=== PATIENT | female | born 1995 | race Hispanic/Latino ===

== ENCOUNTER 2019-03-09 12:00 | Inpatient (IN) | payer MEDICAID, OTHER ==
[~2019-03-09] VITALS: Ht 154.9 cm; Wt 59.0 kg
[2019-03-09 12:27] LABS: APPEARANCE,URINE Cloudy (CLEAR); BILIRUBIN,URINE Negative (NEGATIVE); COLOR,URINE Yellow (YELLOW); GLUCOSE, URINE (UA) Negative (NEGATIVE); KETONES,URINE >=80 mg/dL (NEGATIVE); LEUKOCYTE ESTERASE ,URINE Small (NEGATIVE); NITRATE,URINE Negative (NEGATIVE); OCCULT BLOOD,URINE Moderate (NEGATIVE); PROTEIN,URINE POS 1+ mg/dL (NEGATIVE); UROBILINOGEN,URINE 0.2 mg/dL (0.2-1.0)
[2019-03-09 12:28] LABS: HCG,QUAL RESULT NEGATIVE (NEGATIVE)
[2019-03-09 12:35] LABS: BACTERIA,URINE Few /HPF (None Seen)
[2019-03-09 12:36] LABS: HYALINE CASTS, URINE 26-50 /LPF (0-1 /LPF); MUCUS,URINE Few LPF (None Seen)
[2019-03-09 13:03] LABS: BASOPHILS % (AUTO) 0.2 % (0.0-5.0); EOSINOPHILS % (AUTO) 3.2 % (0.0-8.0); HEMATOCRIT 37.8 % (36-48); MEAN CORPUSCULAR HEMOGLOBIN 31.1 pg (27.0-33.0); MEAN CORPUSCULAR HGB CONC 34.6 g/dL (32.0-36.0); MEAN CORPUSCULAR VOLUME 89.9 fL (79-99); MONOCYTES % (AUTO) 7.7 % (3.0-13.0); NEUTROPHILS % (AUTO) 71.9 % (40.0-77.0); PLATELET COUNT (AUTO) 323 K/uL (130-400); RED BLOOD CELL COUNT(AUTO) 4.21 MIL/uL (4.00-5.50); RED CELL DISTRIBUTION WIDTH 13.1 % (11.0-15.5); WHITE BLOOD COUNT (AUTO) 7.3 K/uL (4.8-10.8)
[2019-03-09] MEDS ORDERED: ONDANSETRON HCL 4 MG/2 ML VIAL ONE ×2 (13:05→19:16)
[2019-03-09] MEDS ORDERED: HYOSCYAMINE SULFATE 0.125 MG TAB.SUBL SL ONE (13:05)
[2019-03-09] MEDS ORDERED: SODIUM CHLORIDE 0.9% 1000ML 1,000 ML IV ONE ×2 (13:05→16:51)
[2019-03-09 13:10] LABS: CREATININE 0.7 mg/dL (0.5-1.5); POTASSIUM 3.6 mmol/L (3.5-5.1)
[2019-03-09 13:12] LABS: INR 1.03 (0.85-1.15); PARTIAL THROMBOPLASTIN TIME 27.3 SEC (26.3-35.5); PROTHROMBIN TIME 10.8 SEC (9.6-11.6)
[2019-03-09 13:15] LABS: ALBUMIN 3.7 g/dL (3.5-5.0); BILIRUBIN,DIRECT 0.1 mg/dL (0.0-0.3); BILIRUBIN,TOTAL 0.3 mg/dL (0.2-1.0); TOTAL PROTEIN, SERUM 7.7 g/dL (6.0-8.3)
[2019-03-09 13:27] LABS: OCCULT BLOOD STOOL SINGLE ONLY POSITIVE (NEGATIVE)
[2019-03-09] MEDS ORDERED: IOHEXOL-350 75 ML VIAL IV ONE (14:27)
[2019-03-09] MEDS: SODIUM CHLORIDE 0.9% 1000ML 1,000 ML IV SCH (15:25)
[2019-03-09] MEDS ORDERED: POTASSIUM CHLORIDE 10% ELIXIR 20 MEQ/15 ML UDCUP PO PRN (17:00)
[2019-03-09] MEDS ORDERED: POTASSIUM CHLORIDE 20MEQ/100ML 100 ML IV PRN ×2 (17:00)
[2019-03-09] MEDS: CEFTRIAXONE SODIUM 1 GM IVP SCH (17:15)
[2019-03-09] MEDS ORDERED: CEFTRIAXONE SODIUM 1 GM ONE (17:47)
[2019-03-09 19:00] VITALS: BP 103/69
[2019-03-09] MEDS: MORPHINE SULFATE 2 MG/ML 1ML SYG IV PRN (19:20)
--- NOTE | 2019-03-09 19:30 | NUR ---
DR MILLER HERE ON FLOOR. MADE AWARE OF CONSULT TO SEE PATIENT. LABS WERE REPORTED TO AND STATED " LABS LOOK FINE AND THERE IS NO NEED FOR ME TO SEE PATIENT". RECONSULT NEEDED. ON COMING NURSE INFORMED
[2019-03-09 20:00] VITALS: BP 115/68
[2019-03-09] MEDS ORDERED: PANTOPRAZOLE 40 MG/VIAL IVP SCH (21:00)
[2019-03-09] MEDS ORDERED: FAMOTIDINE/PF 20 MG/2 ML VIAL IV SCH (21:00)
[2019-03-09 21:35] LABS: MEAN CORPUSCULAR HEMOGLOBIN 31.2 pg (27.0-33.0); MEAN CORPUSCULAR HGB CONC 34.7 g/dL (32.0-36.0); MEAN CORPUSCULAR VOLUME 89.9 fL (79-99); PLATELET COUNT (AUTO) 281 K/uL (130-400); RED BLOOD CELL COUNT(AUTO) 3.56 MIL/uL (4.00-5.50); WHITE BLOOD COUNT (AUTO) 6.9 K/uL (4.8-10.8)
[2019-03-09 23:49] VITALS: BP 100/53
[2019-03-10] MEDS: ONDANSETRON HCL 4 MG/2 ML VIAL IVP PRN ×3 (01:56→17:10)
[2019-03-10] MEDS: MORPHINE SULFATE 2 MG/ML 1ML SYG IV PRN ×2 (02:07→18:32)
[2019-03-10] MEDS: SODIUM CHLORIDE 0.9% 1000ML 1,000 ML IV SCH ×4 (02:10→11:58)
[2019-03-10 03:42] VITALS: BP 110/60
[2019-03-10 06:47] LABS: BASOPHILS % (AUTO) 0.3 % (0.0-5.0); LYMPHOCYTES % (AUTO) 16.6 % (21.0-51.0); MEAN CORPUSCULAR HEMOGLOBIN 31.6 pg (27.0-33.0); MEAN CORPUSCULAR HGB CONC 34.5 g/dL (32.0-36.0); MEAN CORPUSCULAR VOLUME 91.4 fL (79-99); MONOCYTES % (AUTO) 7.3 % (3.0-13.0); NEUTROPHILS % (AUTO) 72.8 % (40.0-77.0); PLATELET COUNT (AUTO) 271 K/uL (130-400); RED CELL DISTRIBUTION WIDTH 13.3 % (11.0-15.5)
[2019-03-10 06:54] LABS: ALBUMIN 2.8 g/dL (3.5-5.0); BILIRUBIN,TOTAL 0.3 mg/dL (0.2-1.0); CREATININE 0.6 mg/dL (0.5-1.5); POTASSIUM 3.6 mmol/L (3.5-5.1); TOTAL PROTEIN, SERUM 6.1 g/dL (6.0-8.3)
[2019-03-10 07:52] LABS: AMYLASE 234 U/L (25-115)
[2019-03-10 08:00] VITALS: BP 116/53
[2019-03-10 08:03] LABS: APPEARANCE,URINE Clear (CLEAR); BILIRUBIN,URINE Negative (NEGATIVE); COLOR,URINE Yellow (YELLOW); GLUCOSE, URINE (UA) Negative (NEGATIVE); KETONES,URINE >=160 mg/dL (NEGATIVE); LEUKOCYTE ESTERASE ,URINE Trace (NEGATIVE); NITRATE,URINE Negative (NEGATIVE); OCCULT BLOOD,URINE Large (NEGATIVE); PROTEIN,URINE Trace mg/dL (NEGATIVE); UROBILINOGEN,URINE 0.2 mg/dL (0.2-1.0)
[2019-03-10 08:16] LABS: LIPASE 2668 U/L (114-286)
[2019-03-10 08:17] LABS: BACTERIA,URINE None Seen /HPF (None Seen); RBC,URINE 26-50 /HPF (0-1)
[2019-03-10] MEDS ORDERED: ENOXAPARIN SODIUM 30 MG/0.3 ML SQ SCH (09:00)
[2019-03-10 12:00] VITALS: BP 103/55
[2019-03-10] MEDS: DEXTROSE 5%-LACTATED RINGERS 1,000 ML IV SCH (15:33)
[2019-03-10 16:00] VITALS: BP 112/68
[2019-03-10] MEDS: CEFTRIAXONE SODIUM 1 GM IVP SCH (17:09)
[2019-03-10] MEDS: MAGNESIUM 2GM PREMIX 50ML 50 ML IV PRN (17:10)
--- NOTE | 2019-03-10 17:55 | NUR ---
INITIAL: Met with pt this afternoon to discuss dcp. Pt mentions that she lives w her dad and stepmom. Prior to admission she was independent w ambulation and ADLs. She does not own any DME or receive services. Pt mentions that she feels safe and comfortable to return home at ar. CM to continue to follow and wait for Md recommendations. Addendum: 03/10/19 at 1756 by JOANA VENTURA CM Amended: Links added. Addendum: 03/10/19 at 1757 by JOANA VENTURA low income packet provided to pt. discussed $4 discount prescription program avail @ [facility] or [facility].
--- NOTE | 2019-03-10 19:20 | NUR ---
SONO RECEIVED REPORT FROM AM SHIFT,SABAS MICHELLE. NURSE'S ROUND DONE. OCCUPATIONAL PHYSICIAN CALLED AND ASKED IF PT IS NPO. INFORMED THAT PT JUST PLACED NPO FROM NOW. TRAINING ASSISTANT WAS INFORMED THAT OCCUPATIONAL PHYSICIAN WILL NOT BE IN TILL THE AM. WILL PLACE PT NPO POST MN.
[2019-03-10 19:47] VITALS: BP 111/76
--- NOTE | 2019-03-10 20:15 | NUR ---
NPO PT INFORMED THAT THERE IS NO CONVEYOR WEIGHER OPERATOR UNTIL THE AM. INSTRUCTED NPO POST MN. LET TO HAVE CLEAR LIQUIDS AT THIS TIME.
[2019-03-10] MEDS: POTASSIUM CHLORIDE 20 MEQ ERTAB PO PRN ×2 (21:30→23:16)
--- NOTE | 2019-03-10 23:20 | NUR ---
KCL LAST DOSE OF KCL PO GIVEN, TOLERATED WELL. RE-ITERATED TO BE NPO POST MN FOR SONOGRAM IN AM. PT VERBALIZES UNDERSTANDING.
[2019-03-10 23:44] VITALS: BP 144/56
[2019-03-11] MEDS: DEXTROSE 5%-LACTATED RINGERS 1,000 ML IV SCH ×3 (00:03→16:32)
--- NOTE | 2019-03-11 02:00 | NUR ---
ROUNDS PT FAIRLY ASLEEP WITH RESPIRATIONS EVEN AND UNLABORED. KEPT UNDISTURBED FOR NOW. WILL MONITOR PT. KEPT NPO.
--- NOTE | 2019-03-11 03:30 | NUR ---
BM PT REPORTED 2 LOOSE STOOLS THIS AM. INSTRUCTED TO COLLECT AND LET STAFF KNOW WHEN SHE WILL HAVE ANOTHER BM. NUN'S CAP PROVIDED FOR COLLECTION.
[2019-03-11 04:00] VITALS: BP 107/71
--- NOTE | 2019-03-11 05:58 | NUR ---
ROUNDS PT RESTING WELL, NO DISTRESS NOTED. KEPT RESTED AND COMFORTABLE. KEPT NPO FOR SONOGRAM. FOR MORE CARE.
[2019-03-11 06:10] LABS: BASOPHILS % (AUTO) 0.4 % (0.0-5.0); EOSINOPHILS % (AUTO) 6.3 % (0.0-8.0); HEMATOCRIT 36.5 % (36-48); LYMPHOCYTES % (AUTO) 16.2 % (21.0-51.0); MEAN CORPUSCULAR HEMOGLOBIN 31.4 pg (27.0-33.0); MEAN CORPUSCULAR HGB CONC 35.1 g/dL (32.0-36.0); MEAN CORPUSCULAR VOLUME 89.5 fL (79-99); MONOCYTES % (AUTO) 10.6 % (3.0-13.0); NEUTROPHILS % (AUTO) 66.5 % (40.0-77.0); PLATELET COUNT (AUTO) 359 K/uL (130-400); RED BLOOD CELL COUNT(AUTO) 4.07 MIL/uL (4.00-5.50); RED CELL DISTRIBUTION WIDTH 13.3 % (11.0-15.5); WHITE BLOOD COUNT (AUTO) 7.4 K/uL (4.8-10.8)
[2019-03-11 06:38] LABS: ALBUMIN 3.1 g/dL (3.5-5.0); BILIRUBIN,TOTAL 0.2 mg/dL (0.2-1.0); CREATININE 0.6 mg/dL (0.5-1.5); MAGNESIUM 1.8 mg/dL (1.80-2.40); POTASSIUM 4.2 mmol/L (3.5-5.1)
[2019-03-11 08:00] VITALS: BP 120/73
--- NOTE | 2019-03-11 08:55 | NUR ---
STOOL SPECIMEN STOOL COLLECTED AND SENT FOR C. DIFF PANEL.
[2019-03-11] MEDS: ONDANSETRON HCL 4 MG/2 ML VIAL IVP PRN ×3 (08:56→20:11)
[2019-03-11] MEDS: MAGNESIUM 2GM PREMIX 50ML 50 ML IV PRN (09:11)
[2019-03-11 11:33] VITALS: BP 124/70
[2019-03-11] MEDS: MORPHINE SULFATE 4 MG/1ML SYG IV PRN ×2 (13:54→20:17)
[2019-03-11 14:07] LABS: CHOLESTEROL 99 mg/dL (<200); HDL CHOLESTEROL 41 mg/dL (35-85); LDL DIRECT 56 mg/dL (0-99); TRIGLYCERIDES 48 mg/dL (30-200)
--- NOTE | 2019-03-11 16:02 | NUR ---
Nutrition Intervention: Nutrition consult due to dx pancreatitis. Pt. reports UBW was 140# about 11-12 days ago. Pt. has lost 10#(7% of UBW) in less than 2 weeks. Pt. NPO. Pt. reports no problem with N/V at this time. Labs reviewed(Alb 3.1, Lipase 3520, Amylase 234). LBM: 03/11/19, loose. BMI: 24.6, normal. Pt. educated on Pancreatitis Nutrition diet and provided with education material. Pt. verbalized understanding. Recommendations: 1) When medically feasible, rec. Clear Liquids and advance as tolerated to Low Fat GI Soft [place] diet. 2) Pancreatitis Nutrition diet education given to patient . 3) Continue to monitor pt's nutritional status. 4) Consult RD as nutrition concerns arise. Addendum: 03/11/19 at [address] Amended: Links added.
[2019-03-11] MEDS: CEFTRIAXONE SODIUM 1 GM IVP SCH (16:32)
[2019-03-11 16:36] VITALS: BP 106/75
[2019-03-11 20:00] VITALS: BP 111/71
[2019-03-12] VITALS: BP 120/73
[2019-03-12 04:00] VITALS: BP 102/69
[2019-03-12 04:56] LABS: BASOPHILS % (AUTO) 0.7 % (0.0-5.0); EOSINOPHILS % (AUTO) 6.3 % (0.0-8.0); MEAN CORPUSCULAR HEMOGLOBIN 31.3 pg (27.0-33.0); MEAN CORPUSCULAR VOLUME 89.6 fL (79-99); MONOCYTES % (AUTO) 10.3 % (3.0-13.0); NEUTROPHILS % (AUTO) 64.7 % (40.0-77.0); PLATELET COUNT (AUTO) 348 K/uL (130-400); RED BLOOD CELL COUNT(AUTO) 4.25 MIL/uL (4.00-5.50); RED CELL DISTRIBUTION WIDTH 13.5 % (11.0-15.5); WHITE BLOOD COUNT (AUTO) 7.6 K/uL (4.8-10.8)
[2019-03-12 05:24] LABS: ALBUMIN 3.1 g/dL (3.5-5.0); BILIRUBIN,TOTAL 0.3 mg/dL (0.2-1.0); CREATININE 0.7 mg/dL (0.5-1.5); POTASSIUM 3.2 mmol/L (3.5-5.1); TOTAL PROTEIN, SERUM 6.9 g/dL (6.0-8.3)
[2019-03-12 08:45] VITALS: BP 130/58
[2019-03-12] MEDS: ONDANSETRON HCL 4 MG/2 ML VIAL IVP PRN ×2 (09:53→21:04)
[2019-03-12] MEDS: MORPHINE SULFATE 2 MG/ML 1ML SYG IV PRN (10:17)
[2019-03-12 11:36] VITALS: BP 114/62
[2019-03-12] MEDS: DEXTROSE 5%-LACTATED RINGERS 1,000 ML IV SCH ×2 (12:48→21:04)
[2019-03-12 16:45] VITALS: BP 105/52
[2019-03-12] MEDS: CEFTRIAXONE SODIUM 1 GM IVP SCH (17:22)
[2019-03-12 19:08] VITALS: BP 116/62
[2019-03-12] MEDS: MORPHINE SULFATE 4 MG/1ML SYG IV PRN (22:40)
[2019-03-13] VITALS (7 sets, daily range): BP systolic 96–124; BP diastolic 62–75
[2019-03-13] MEDS: DEXTROSE 5%-LACTATED RINGERS 1,000 ML IV SCH ×4 (04:16→21:29)
[2019-03-13 05:33] LABS: HEMATOCRIT 36.8 % (36-48); MEAN CORPUSCULAR HEMOGLOBIN 31.3 pg (27.0-33.0); MEAN CORPUSCULAR VOLUME 89.4 fL (79-99); NUCLEATED RED BLOOD CELLS 0.1 % (0.0-0.19); PLATELET COUNT (AUTO) 368 K/uL (130-400); RED BLOOD CELL COUNT(AUTO) 4.11 MIL/uL (4.00-5.50); RED CELL DISTRIBUTION WIDTH 13.4 % (11.0-15.5); WHITE BLOOD COUNT (AUTO) 7.9 K/uL (4.8-10.8)
[2019-03-13 05:55] LABS: ALBUMIN 2.9 g/dL (3.5-5.0); BILIRUBIN,TOTAL 0.3 mg/dL (0.2-1.0); CREATININE 0.6 mg/dL (0.5-1.5); POTASSIUM 3.4 mmol/L (3.5-5.1); TOTAL PROTEIN, SERUM 6.6 g/dL (6.0-8.3)
[2019-03-13] MEDS: MAGNESIUM 2GM PREMIX 50ML 50 ML IV PRN ×2 (08:02→18:37)
[2019-03-13] MEDS: ONDANSETRON HCL 4 MG/2 ML VIAL IVP PRN ×2 (09:01→23:43)
[2019-03-13] MEDS: MORPHINE SULFATE 4 MG/1ML SYG IV PRN (13:02)
[2019-03-13] MEDS: CEFTRIAXONE SODIUM 1 GM IVP SCH (18:32)
[2019-03-13 18:43] LABS: AMPHET/METH SCREEN,URINE NEGATIVE (NEGATIVE); BARBITURATE SCREEN, URINE NEGATIVE (NEGATIVE); BENZODIAZEPINES SCREEN,URINE NEGATIVE (NEGATIVE); CANNABINOID SCREEN,URINE POSITIVE (NEGATIVE); COCAINE SCREEN,URINE NEGATIVE (NEGATIVE); OPIATE SCREEN,URINE POSITIVE (NEGATIVE); PHENCYCLIDINE SCREEN,URINE NEGATIVE (NEGATIVE)
--- NOTE | 2019-03-13 18:47 | NUR ---
DEBBIE CONSULT Dr. Dunham paged and notified about the consult, stated to stop by tomorrow 03/14/2019
[2019-03-13] MEDS ORDERED: PEG 3350/NA SULF,BICARB,CL/KCL 4000 ML SOLN PO ONE (19:45)
[2019-03-13] MEDS ORDERED: MAGNESIUM CITRATE 296 ML SOLUTION PO ONE (19:45)
[2019-03-13] MEDS ORDERED: POTASSIUM CHLORIDE 20 MEQ ERTAB PO ONE (19:45)
[2019-03-14] VITALS (19 sets, daily range): BP systolic 100–127; BP diastolic 47–85
[2019-03-14] MEDS: DEXTROSE 5%-LACTATED RINGERS 1,000 ML IV SCH ×5 (01:04→22:41)
[2019-03-14 05:30] LABS: HEMATOCRIT 36.3 % (36-48); MEAN CORPUSCULAR HGB CONC 34.7 g/dL (32.0-36.0); MEAN CORPUSCULAR VOLUME 89.3 fL (79-99); PLATELET COUNT (AUTO) 360 K/uL (130-400); RED BLOOD CELL COUNT(AUTO) 4.07 MIL/uL (4.00-5.50); RED CELL DISTRIBUTION WIDTH 13.2 % (11.0-15.5); WHITE BLOOD COUNT (AUTO) 7.3 K/uL (4.8-10.8)
[2019-03-14 05:43] LABS: BILIRUBIN,TOTAL 0.2 mg/dL (0.2-1.0); CREATININE 0.6 mg/dL (0.5-1.5); TOTAL PROTEIN, SERUM 6.6 g/dL (6.0-8.3)
--- NOTE | 2019-03-14 15:46 | NUR ---
RD FOLLOW UP Pt NPO this AM. GI specialist, Surgery on the case. EGD pending as per EMR. Pt LBM 03/13/19, Tarry, Liquid/loose stools. Elevated Lipase (4126). Monitored labs: BUN 0, Ca 8.1, Alb 3.0. When medically feasible, recommend to advance diet as tolerated to Low fat, GI soft/[place] diet, 30mls ProMod TID. RD to continue to monitor. Please notify RD as additional nutrition concerns arise. Thank you. Addendum: 03/14/19 at [address] Amended: Links added.
--- NOTE | 2019-03-14 17:11 | NUR ---
PT UPDATE Pt off the floor for an EGD by Dr. Oro. Pt not prepped for colonoscopy, colonoscopy rescheduled for tomorrow 03/15/2019
[2019-03-14] MEDS ORDERED: PROPOFOL 10 MG/ML 20ML VIAL IV ONE (17:33)
[2019-03-14] MEDS ORDERED: LIDOCAINE HCL-MPF 2% 5ML VIAL ONE (17:36)
[2019-03-14] MEDS: CEFTRIAXONE SODIUM 1 GM IVP SCH (19:09)
[2019-03-14] MEDS: ONDANSETRON HCL 4 MG/2 ML VIAL IVP PRN (19:09)
--- NOTE | 2019-03-14 20:01 | NUR ---
PT UPDATE Pt back from EGD, NG tube placed in right naris for colonoscopy prep.
[2019-03-14] MEDS: MORPHINE SULFATE 2 MG/ML 1ML SYG IV PRN (20:52)
[2019-03-14] MEDS ORDERED: PEG 3350/NA SULF,BICARB,CL/KCL 4000 ML SOLN PO ONE (21:15)
[2019-03-14] MEDS ORDERED: MAGNESIUM CITRATE 296 ML SOLUTION PO ONE (21:15)
[2019-03-15] VITALS (15 sets, daily range): BP systolic 86–133; BP diastolic 36–76
[2019-03-15] MEDS: MORPHINE SULFATE 2 MG/ML 1ML SYG IV PRN (00:53)
[2019-03-15 04:38] LABS: MEAN CORPUSCULAR HEMOGLOBIN 31.8 pg (27.0-33.0); MEAN CORPUSCULAR HGB CONC 35.3 g/dL (32.0-36.0); PLATELET COUNT (AUTO) 357 K/uL (130-400); RED BLOOD CELL COUNT(AUTO) 3.66 MIL/uL (4.00-5.50); RED CELL DISTRIBUTION WIDTH 13.4 % (11.0-15.5)
[2019-03-15 05:07] LABS: ALBUMIN 2.8 g/dL (3.5-5.0); BILIRUBIN,TOTAL 0.2 mg/dL (0.2-1.0); CREATININE 0.6 mg/dL (0.5-1.5); POTASSIUM 3.8 mmol/L (3.5-5.1); TOTAL PROTEIN, SERUM 6.3 g/dL (6.0-8.3)
--- NOTE | 2019-03-15 12:28 | NUR ---
MR GRAHAM AT BEDSIDE WANTS TO WAIT ON GI RECOMMENDATION, STATES THERE IS A HIGH POSSIBILITY OF REMOVAL OF GALLBLADDER.
[2019-03-15] MEDS ORDERED: PROPOFOL 10 MG/ML 20ML VIAL IV ONE ×3 (14:41→15:21)
--- NOTE | 2019-03-15 17:35 | NUR ---
DR MILLER PAGED RE; MESALAMINE PO N/A DOES HE WANT DIFFERENT MED, PENDING CALL BACK.
[2019-03-15] MEDS: DEXTROSE 5%-LACTATED RINGERS 1,000 ML IV SCH ×2 (19:03→22:47)
[2019-03-15] MEDS: CEFTRIAXONE SODIUM 1 GM IVP SCH (19:03)
[2019-03-15] MEDS: PREDNISONE 20 MG TABLET PO SCH (22:39)
[2019-03-16 00:05] VITALS: BP 112/58
[2019-03-16] MEDS: DEXTROSE 5%-LACTATED RINGERS 1,000 ML IV SCH ×4 (04:05→19:54)
[2019-03-16 04:18] VITALS: BP 102/64
[2019-03-16 05:19] LABS: HEMATOCRIT 36.3 % (36-48); MEAN CORPUSCULAR HEMOGLOBIN 31.2 pg (27.0-33.0); MEAN CORPUSCULAR HGB CONC 34.4 g/dL (32.0-36.0); MEAN CORPUSCULAR VOLUME 90.7 fL (79-99); PLATELET COUNT (AUTO) 356 K/uL (130-400); RED BLOOD CELL COUNT(AUTO) 4.01 MIL/uL (4.00-5.50); RED CELL DISTRIBUTION WIDTH 13.4 % (11.0-15.5); WHITE BLOOD COUNT (AUTO) 10.9 K/uL (4.8-10.8)
[2019-03-16 05:39] LABS: ALBUMIN 3.1 g/dL (3.5-5.0); BILIRUBIN,TOTAL 0.2 mg/dL (0.2-1.0); CREATININE 0.7 mg/dL (0.5-1.5); MAGNESIUM 1.5 mg/dL (1.80-2.40); POTASSIUM 3.7 mmol/L (3.5-5.1)
[2019-03-16 08:28] VITALS: BP 110/52
[2019-03-16] MEDS: SULFASALAZINE 500 MG TAB.DR PO SCH ×4 (08:40→20:12)
[2019-03-16] MEDS: PREDNISONE 20 MG TABLET PO SCH (08:40)
[2019-03-16 12:00] VITALS: BP 114/70
[2019-03-16 16:00] VITALS: BP 133/73
--- NOTE | 2019-03-16 16:14 | NUR ---
PT UPDATE Pt on clear liq diet, tolerating fine with no complication, No nausea or vomiting reported, pt asking families to bring food from outside, this repairer typewriter explained to pt she needs to be compliant with recommendations from GI, no order to advance diet as at this time, Dr Oro paged for new orders and pending return call back. Nursing will continue to follow up.
[2019-03-16] MEDS: CEFTRIAXONE SODIUM 1 GM IVP SCH (17:42)
[2019-03-16 19:20] VITALS: BP 112/50
[2019-03-17 00:12] VITALS: BP 118/77
[2019-03-17] MEDS: DEXTROSE 5%-LACTATED RINGERS 1,000 ML IV SCH ×5 (01:25→22:14)
[2019-03-17 04:15] VITALS: BP 122/63
[2019-03-17 05:25] LABS: HEMATOCRIT 31.3 % (36-48); MEAN CORPUSCULAR HEMOGLOBIN 31.1 pg (27.0-33.0); MEAN CORPUSCULAR HGB CONC 34.6 g/dL (32.0-36.0); MEAN CORPUSCULAR VOLUME 89.6 fL (79-99); PLATELET COUNT (AUTO) 313 K/uL (130-400); RED BLOOD CELL COUNT(AUTO) 3.49 MIL/uL (4.00-5.50); RED CELL DISTRIBUTION WIDTH 13.4 % (11.0-15.5); WHITE BLOOD COUNT (AUTO) 12.3 K/uL (4.8-10.8)
[2019-03-17 05:37] LABS: BAND NEUTROPHILS % (MANUAL) 24 % (0-2); EOSINOPHILS % (MANUAL) 1 % (1-6); LYMPHOCYTES % (MANUAL) 14 % (22-44); MAN.DIFF COMMENT-IMPRESSION MANUAL DIFFERENTIAL; MONOCYTES % (MANUAL) 3 % (2-9); PLATELET MORPHOLOGY COMMENT ADEQUATE; SEGMENTED NEUTROPHILS % 58 % (40-70)
[2019-03-17 05:43] LABS: CREATININE 0.6 mg/dL (0.5-1.5); POTASSIUM 3.2 mmol/L (3.5-5.1)
[2019-03-17 07:59] VITALS: BP 124/69
[2019-03-17] MEDS: POTASSIUM CHLORIDE 20 MEQ ERTAB PO PRN ×3 (08:43→15:22)
[2019-03-17] MEDS: PREDNISONE 20 MG TABLET PO SCH (08:44)
[2019-03-17] MEDS: SULFASALAZINE 500 MG TAB.DR PO SCH ×4 (08:44→22:07)
[2019-03-17 12:00] VITALS: BP 118/73
[2019-03-17] MEDS ORDERED: POTASSIUM CHLORIDE 20MEQ/100ML 100 ML IV PRN (12:45)
[2019-03-17] MEDS ORDERED: LIDOCAINE HCL-MPF 1% 2ML VIAL IV PRN (12:45)
[2019-03-17] MEDS ORDERED: POTASSIUM CHLORIDE 20 MEQ ERTAB PO PRN (12:45)
[2019-03-17] MEDS ORDERED: POTASSIUM CHLORIDE 10% ELIXIR 20 MEQ/15 ML UDCUP PO PRN (12:45)
[2019-03-17 16:00] VITALS: BP 122/94
[2019-03-17] MEDS: CEFTRIAXONE SODIUM 1 GM IVP SCH (18:12)
[2019-03-17 19:20] VITALS: BP 125/71
[2019-03-18] VITALS (7 sets, daily range): BP systolic 116–133; BP diastolic 54–77
[2019-03-18] MEDS: DEXTROSE 5%-LACTATED RINGERS 1,000 ML IV SCH ×5 (04:10→21:23)
[2019-03-18 05:01] LABS: HEMATOCRIT 31.3 % (36-48); MEAN CORPUSCULAR HGB CONC 34.1 g/dL (32.0-36.0); MEAN CORPUSCULAR VOLUME 90.8 fL (79-99); PLATELET COUNT (AUTO) 309 K/uL (130-400); RED BLOOD CELL COUNT(AUTO) 3.45 MIL/uL (4.00-5.50); RED CELL DISTRIBUTION WIDTH 13.2 % (11.0-15.5); WHITE BLOOD COUNT (AUTO) 9.1 K/uL (4.8-10.8)
[2019-03-18 05:10] LABS: CREATININE 0.5 mg/dL (0.5-1.5); POTASSIUM 3.4 mmol/L (3.5-5.1)
[2019-03-18 05:17] LABS: BAND NEUTROPHILS % (MANUAL) 4 % (0-2); EOSINOPHILS % (MANUAL) 2 % (1-6); LYMPHOCYTES % (MANUAL) 21 % (22-44); MONOCYTES % (MANUAL) 7 % (2-9); SEGMENTED NEUTROPHILS % 66 % (40-70)
[2019-03-18 05:18] LABS: MAN.DIFF COMMENT-IMPRESSION MANUAL DIFFERENTIAL; PLATELET MORPHOLOGY COMMENT ADEQUATE
[2019-03-18] MEDS: SULFASALAZINE 500 MG TAB.DR PO SCH ×4 (09:58→21:23)
[2019-03-18] MEDS: PREDNISONE 20 MG TABLET PO SCH (09:59)
--- NOTE | 2019-03-18 10:05 | NUR ---
PATIENT OFF UNIT TO VISIT GRANDMOTHER ON 4TH FLOOR, HER MOTHER ACCOMPANIED HER
[2019-03-18] MEDS: ONDANSETRON HCL 4 MG/2 ML VIAL IVP PRN ×3 (11:44→16:33)
[2019-03-18] MEDS: POTASSIUM CHLORIDE 20 MEQ ERTAB PO PRN ×2 (11:47→16:34)
--- NOTE | 2019-03-18 15:55 | NUR ---
RD FOLLOW UP Pt tolerating Full Liquid diet as per Pt, No report of GI distress and Fair PO intake (75-100%). Recommend to advance diet as tolerated to GI Soft/Humble, Low Fat diet. Pt dislikes Mighty Milks she has been receiving. Pt LBM 03/17/19. Pt monitored labs: Hgb 10.7, Hct 31.1, K 3.4, BUN 1, Ca 8.3, Lipase 1436, Alb 3.1, Mg 1.50. RD to continue to monitor. Please notify RD as additional nutrition concerns arise. Thank you. Addendum: 03/18/19 at [address] Amended: Links added.
[2019-03-18] MEDS: CEFTRIAXONE SODIUM 1 GM IVP SCH (16:34)
[2019-03-19] MEDS: DEXTROSE 5%-LACTATED RINGERS 1,000 ML IV SCH ×2 (02:43→06:04)
[2019-03-19 04:05] VITALS: BP 106/52
[2019-03-19 05:19] LABS: HEMATOCRIT 34.7 % (36-48); MEAN CORPUSCULAR HEMOGLOBIN 31.7 pg (27.0-33.0); MEAN CORPUSCULAR HGB CONC 35.2 g/dL (32.0-36.0); PLATELET COUNT (AUTO) 360 K/uL (130-400); RED BLOOD CELL COUNT(AUTO) 3.85 MIL/uL (4.00-5.50); RED CELL DISTRIBUTION WIDTH 13.4 % (11.0-15.5); WHITE BLOOD COUNT (AUTO) 10.3 K/uL (4.8-10.8)
[2019-03-19 05:27] LABS: LYMPHOCYTES % (MANUAL) 19 % (22-44); MAN.DIFF COMMENT-IMPRESSION MANUAL DIFFERENTIAL; MONOCYTES % (MANUAL) 6 % (2-9); PLATELET MORPHOLOGY COMMENT ADEQUATE; SEGMENTED NEUTROPHILS % 75 % (40-70)
[2019-03-19 05:37] LABS: CREATININE 0.6 mg/dL (0.5-1.5); POTASSIUM 3.6 mmol/L (3.5-5.1)
[2019-03-19] MEDS: POTASSIUM CHLORIDE 20 MEQ ERTAB PO PRN (06:13)
[2019-03-19 07:28] VITALS: BP 120/67
[2019-03-19] MEDS ORDERED: ONDANSETRON 4 MG TABLET PO PRN (07:45)
[2019-03-19] MEDS: PREDNISONE 20 MG TABLET PO SCH (08:56)
[2019-03-19] MEDS: SULFASALAZINE 500 MG TAB.DR PO SCH ×3 (08:58→18:03)
[2019-03-19 12:00] VITALS: BP 132/74
[2019-03-19 16:00] VITALS: BP 132/74
[2019-03-19] MEDS ORDERED: PRED5TAB PO (17:51)
[2019-03-19] MEDS ORDERED: PANT40TA PO (17:51)
[2019-03-19] MEDS ORDERED: SULF500T3 PO (17:51)
[2019-03-19] MEDS ORDERED: PRED20TA3 PO (17:51)
[2019-03-19] MEDS ORDERED: PRED10TA3 PO (17:51)
--- NOTE | 2019-03-19 19:00 | NUR ---
patient given d/c instructions for pancreatitis and ulcerative colits; script given; pt stated understanding of all d/c instructions; iv access removed earlier in preperation for d/c.
[2019-04-01] MEDS ORDERED: PREDNISONE 10 MG TABLET PO SCH (09:00)
[2019-04-08] MEDS ORDERED: PREDNISONE 5 MG TABLET PO SCH (09:00)
[2019-04-15] MEDS ORDERED: PREDNISONE 5 MG TABLET PO SCH (09:00)
[2020-03-25] MEDS ORDERED: PREDNISONE 20 MG TABLET PO SCH (09:00)
== END 2019-03-19 19:20 | disposition home or self-care (01) | DRG 377 ==
LOC: EDH 12:00 → EDHIP 12:01 → 3DH 18:43
PROVIDERS: ADMIT Family Medicine; ATTEND Family Medicine
PROC: 0DB38ZX Excision of Lower Esophagus, Via Natural or Artificial Opening Endoscopic, Diagnostic (ICD-10-PCS; 2019-03-14)
PROC: 0DB68ZX Excision of Stomach, Via Natural or Artificial Opening Endoscopic, Diagnostic (ICD-10-PCS; 2019-03-14)
PROC: 0DBB8ZX Excision of Ileum, Via Natural or Artificial Opening Endoscopic, Diagnostic (ICD-10-PCS; principal; 2019-03-15)
DX: K29.01 Acute gastritis with bleeding (principal); K85.90 Acute pancreatitis without necrosis or infection, unspecified; N39.0 Urinary tract infection, site not specified; D62 Acute posthemorrhagic anemia; K51.00 Ulcerative (chronic) pancolitis without complications; E87.6 Hypokalemia; K28.9 Gastrojejunal ulcer, unspecified as acute or chronic, without hemorrhage or perforation; K82.8 Other specified diseases of gallbladder; Z82.3 Family history of stroke; K21.0 Gastro-esophageal reflux disease with esophagitis; K44.9 Diaphragmatic hernia without obstruction or gangrene; K64.0 First degree hemorrhoids
CPT/HCPCS: 36415; 43239; 45380; 74177; 74181; 76705; 78227; 80048; 80053; 80061; 80076; 80305; 81001; 81025; 82150; 82270; 82310; 83690; 83735; 84132; 85025; 85027; 85610; 85730; 86677; 87088; 87324; 87338; 87507; 88305; A9537; C9113; G0378; J0696; J2270; J2405; J2704; J3475; J3480; J3490; J7030; Q9967

== ENCOUNTER 2022-04-03 16:30 | Emergency (ER) | payer OTHER ==
[~2022-04-03] VITALS: Ht 154.9 cm; Wt 68.0 kg
[~2022-04-03 16:30] MED LIST: PANT40TA PO; PRED10TA3 PO; PRED20TA3 PO; PRED5TAB PO; SULF500T3 PO
[2022-04-03 17:31] LABS: BASOPHILS % (AUTO) 0.5 % (0.0-5.0); EOSINOPHILS % (AUTO) 8.3 % (0.0-8.0); HEMATOCRIT 40.4 % (36-48); LYMPHOCYTES % (AUTO) 17.6 % (21.0-51.0); MEAN CORPUSCULAR HEMOGLOBIN 32.3 pg (27.0-33.0); MEAN CORPUSCULAR HGB CONC 35.1 g/dL (32.0-36.0); MEAN CORPUSCULAR VOLUME 91.8 fL (79-99); MONOCYTES % (AUTO) 6.9 % (3.0-13.0); NEUTROPHILS % (AUTO) 66.5 % (40.0-77.0); PLATELET COUNT (AUTO) 318 K/uL (130-400); RED CELL DISTRIBUTION WIDTH 11.4 % (11.0-15.5); WHITE BLOOD COUNT (AUTO) 9.8 K/uL (4.8-10.8)
[2022-04-03 17:38] LABS: APPEARANCE,URINE CLEAR (CLEAR); BILIRUBIN,URINE NEGATIVE (NEGATIVE); COLOR,URINE YELLOW (YELLOW); GLUCOSE, URINE (UA) NEGATIVE (NEGATIVE); KETONES,URINE NEGATIVE (NEGATIVE); LEUKOCYTE ESTERASE ,URINE NEGATIVE Leu/uL (NEGATIVE); NITRATE,URINE NEGATIVE (NEGATIVE); OCCULT BLOOD,URINE NEGATIVE (NEGATIVE); PH,URINE 8.5 (5.0-8.0); PROTEIN,URINE NEGATIVE (NEGATIVE); UROBILINOGEN,URINE 0.2 mg/dL (0.2-1.0)
[2022-04-03 17:39] LABS: HCG,QUALITATIVE URINE NEGATIVE (NEGATIVE)
[2022-04-03 17:43] LABS: CREATININE 0.7 mg/dL (0.5-1.5); POTASSIUM 3.6 mmol/L (3.5-5.1)
[2022-04-03] MEDS ORDERED: PROC5TAB54 PO (19:16)
[2022-04-03] MEDS ORDERED: FAMO-136 PO (19:16)
[2022-04-03 19:30] VITALS: BP 125/65
== END 2022-04-03 19:33 | disposition home or self-care (01) ==
LOC: EDH 16:30
DX: A08.4 Viral intestinal infection, unspecified (principal); Z79.52 Long term (current) use of systemic steroids; Z94.81 Bone marrow transplant status
CPT/HCPCS: 36415; 80053; 81003; 81025; 83690; 85025

== ENCOUNTER 2022-05-23 15:21 | Emergency (ER) | payer OTHER ==
[~2022-05-23] VITALS: Ht 154.9 cm; Wt 68.0 kg
[~2022-05-23 15:21] MED LIST changes: +FAMO-136 PO; +PROC5TAB54 PO
[2022-05-23 15:57] LABS: BASOPHILS % (AUTO) 0.6 % (0.0-5.0); EOSINOPHILS % (AUTO) 6.4 % (0.0-8.0); HEMATOCRIT 43.9 % (36-48); MEAN CORPUSCULAR HEMOGLOBIN 32.3 pg (27.0-33.0); MEAN CORPUSCULAR HGB CONC 34.9 g/dL (32.0-36.0); MEAN CORPUSCULAR VOLUME 92.6 fL (79-99); MONOCYTES % (AUTO) 7.2 % (3.0-13.0); NEUTROPHILS % (AUTO) 67.5 % (40.0-77.0); PLATELET COUNT (AUTO) 351 K/uL (130-400); RED BLOOD CELL COUNT(AUTO) 4.74 MIL/uL (4.00-5.50); RED CELL DISTRIBUTION WIDTH 11.6 % (11.0-15.5); WHITE BLOOD COUNT (AUTO) 7.8 K/uL (4.8-10.8)
[2022-05-23] MEDS ORDERED: SOLU-MEDROL 125MG VIAL IVP ONE (16:00)
[2022-05-23] MEDS ORDERED: FAMOTIDINE 20MG VIAL IV ONE (16:00)
[2022-05-23] MEDS ORDERED: ONDANSETRON 4MG INJ IVP ONE (16:00)
[2022-05-23] MEDS ORDERED: 0.9%NACL 1000ML 1,000 ML IV ONE (16:00)
[2022-05-23 16:06] LABS: CREATININE 0.7 mg/dL (0.5-1.5); POTASSIUM 3.7 mmol/L (3.5-5.1)
[2022-05-23 16:10] LABS: ALBUMIN 3.9 g/dL (3.5-5.0); TOTAL PROTEIN, SERUM 8.4 g/dL (6.0-8.3)
[2022-05-23 16:53] LABS: APPEARANCE,URINE CLEAR (CLEAR); BILIRUBIN,URINE NEGATIVE (NEGATIVE); COLOR,URINE YELLOW (YELLOW); GLUCOSE, URINE (UA) NEGATIVE (NEGATIVE); KETONES,URINE NEGATIVE (NEGATIVE); LEUKOCYTE ESTERASE ,URINE NEGATIVE Leu/uL (NEGATIVE); NITRATE,URINE NEGATIVE (NEGATIVE); OCCULT BLOOD,URINE NEGATIVE (NEGATIVE); PROTEIN,URINE 20 mg/dL (NEGATIVE); UROBILINOGEN,URINE 0.2 mg/dL (0.2-1.0)
[2022-05-23 16:55] LABS: BACTERIA,URINE RARE /HPF (None Seen); MUCUS,URINE FEW LPF (None Seen); RBC,URINE 0-1 /HPF (0-1); SQUAMOUS EPITHELIAL CELL,UR RARE /HPF (0-2)
[2022-05-23 16:56] LABS: HCG,QUALITATIVE URINE NEGATIVE (NEGATIVE)
[2022-05-23] MEDS ORDERED: IOHEXOL 350 MG/ML 100ML INFUS..BTL IV ONE (17:25)
[2022-05-23 17:43] VITALS: BP 115/70
[2022-05-23] MEDS ORDERED: PANT40TA PO (18:46)
[2022-05-23] MEDS ORDERED: PRED20TA3 PO (18:46)
[2022-05-23] MEDS ORDERED: ONDA4TAB10 PO (18:46)
== END 2022-05-23 18:55 | disposition home or self-care (01) ==
LOC: EDH 15:21
DX: K51.90 Ulcerative colitis, unspecified, without complications (principal); Z90.49 Acquired absence of other specified parts of digestive tract; Z98.890 Other specified postprocedural states; Z79.899 Other long term (current) drug therapy
CPT/HCPCS: 99285; 74177; 96374; 96375; 80053; 83690; 85025; 87804 ×2; 81001; 81025; 36415; J3490; J7030; J2930; J2405; Q9967

== ENCOUNTER 2025-04-04 11:18 | Emergency (ER) | payer SELFPAY ==
[~2025-04-04] VITALS: Ht 154.9 cm; Wt 74.8 kg
[~2025-04-04 11:18] MED LIST changes: +ONDA-243 PO
[2025-04-04] MEDS: LIDOCAINE HCL 1% 20 ML VIAL INJ ONE (11:34)
[2025-04-04] MEDS ORDERED: IBUP-1492 PO (12:04)
--- NOTE | 2025-04-04 12:07 | ERN ---
ED Note History of Present Illness Stated Complaint: LACERATION Chief Complaint: Laceration/Avulsion Time Seen by MD: 11:34 Time Seen by Midlevel: 11:35 Dictation: Ms De La Vega is a 29-year-old female with obesity, pancreatitis, and ulcerative colitis who presented to the emergency department this morning for evaluation of hand wound. She states she was opening a box with a knife and sustained a laceration to webspace between the thumb and index finger of the left hand measuring approximately 3 cm. Bleeding is controlled with direct pressure. She states she does not know when her last tetanus shot was. She denies additional injury. She has full range of motion to all fingers. Capillary refill less than 2 seconds. Allergies: Coded Allergies: No Known Drug Allergies (Verified Allergy, Unknown, 03/09/19) Home Meds Active Scripts Ibuprofen (Ibuprofen) 600 Mg Tablet, 1 TAB PO TID for pain for 10 Days, #30 TAB 0 Refills with food Prov:VIKTORIYA REGAN NP 04/04/25 Ondansetron (Ondansetron Odt) 4 Mg Tab.rapdis, 4 MG PO TID, #10 TAB Prov:DANE KERN [facility] 05/23/22 Pantoprazole Sodium (Protonix) 40 Mg Tablet., 40 MG PO DAILY, #30 TAB Prov:DANE KERNP 05/23/22 Prednisone (Prednisone) 20 Mg Tablet, 20 MG PO DAILY, #5 TAB Prov:DANE KERNP 05/23/22 Prochlorperazine Maleate (Compazine) 5 Mg Tab, 5 MG PO TID, #4 TAB Prov:GIULIA PAYNE MD 04/03/22 Famotidine (Pepcid) 20 Mg Tablet, 20 MG PO BID for 30 Days, #60 TAB Prov:GIULIA PAYNE MD 04/03/22 Pantoprazole Sodium (Protonix) 40 Mg Tablet.dr, 40 MG PO DAILY for 10 Days, TAB Prov:PETAR YI NP 03/19/19 Prednisone (Prednisone) 20 Mg Tablet, 20 MG PO DAILY for 3 Days, TAB Prov:PETAR YI NP 03/19/19 Prednisone (Prednisone) 10 Mg Tablet, 10 MG PO DAILY for 3 Days, TAB Prov:PETAR YI NP 03/19/19 Prednisone (Prednisone) 5 Mg Tablet, 5 MG PO DAILY for 3 Days, TAB Prov:PETAR YI SOLAR PROJECT ENGINEER 03/19/19 Sulfasalazine (Azulfidine) 500 Mg/Tab Tablet.dr, 500 MG PO QID for 15 Days, TAB Prov:PETAR YI SOLAR PROJECT ENGINEER 03/19/19 Past Medical History Past Medical History: No Pertinent History Additional Past Medical Hx: ULCERATIVE COLITIS, PANCREATITIS Surgical History: None Surgical History Other: BMT PSYCH History: no pertinent psych hx Social History: ETOH, Lives with family : 5 Para: 3 Aborts: 2 RN Note Reviewed/Agreed w/PFSH: Yes Review of System Dictation REVIEW OF SYSTEMS: CONSTITUTIONAL: Patient denies fevers, chills, sweats and weight changes. EYES: Patient denies any visual symptoms. EARS, NOSE, AND THROAT: No difficulties with hearing. No symptoms of rhinitis or sore throat. CARDIOVASCULAR: Patient denies chest pains, palpitations, orthopnea and pa roxysmal nocturnal dyspnea. RESPIRATORY: No dyspnea on exertion, no wheezing or cough. GI: No nausea, vomiting, diarrhea, constipation, abdominal pain, hematochezia or melena. : No urinary hesitancy or dribbling. No nocturia or urinary frequency. No abno rmal urethral discharge. MUSCULOSKELETAL: No myalgias or arthralgias. NEUROLOGIC: No chronic headaches, no seizures. Patient denies numbness, tingling or weakness. PSYCHIATRIC: Patient denies problems with mood disturbance. No problems with anxiety. ENDOCRINE: No excessive urination or excessive thirst. DERMATOLOGIC: Reports laceration to left thumb. Initial Vital Sign VS Vital Signs Date Time Temp Pulse Resp B/P (MAP) Pulse Ox O2 Delivery O2 Flow Rate FiO2 04/04/25 11:20 98.1 77 16 124/77 98 Room Air 0 04/04/25 11:26 21 Physical Exam Dictation Vital signs: Reviewed. Afebrile Constitutional: No acute distress. Non-toxic appearing. Anxious. Family attentive at bedside Head/Face: Normocephalic, atraumatic. Eyes: Periorbital areas with no swelling, redness, or edema. Lids and lashes are normal. Conjunctival injection is absent. Sclera anicteric. Pupils equal, round, reactive to light. ENT: Pinnas intact and no signs of trauma or erythema. Ear canals clear and no discharge. TMs no erythema. No nasal discharge or bleeding noted. Oropharynx with no exudate, redness, swelling, masses, exudates, or evidence of obstruction. Uvula midline. Mucous membranes moist. Neck: Trachea midline, no masses palpated, and no cervical lymphadenopathy. No swelling. Supple, full range of motion. Chest/Axilla: No tenderness, no crepitus, no paradoxical movement, no retractions. Cardiovascular: Regular rate, regular rhythm, no murmur, no gallops. Symmetric pulses. No peripheral edema. Respiratory: Respirations even and unlabored. Lung sounds clear; no wheezes, rales or rhonchi. Room air SpO2 98% Gastrointestinal: Inspection is normal. No distention is appreciated. Bowel sounds are normal. No mass or organomegaly . There is no tenderness. No rebound. No rigidity. No voluntary or involuntary guarding. No Salmeron's sign. Neurological: Normal speech, gross motor function intact, gross sensory function intact. No focal weakness/Paresthesia. Musculoskeletal/Extremities: All extremities have full range of motion, no pain or tenderness on palpation. Symmetric pulses. He has good color, warmth, movement, and sensation to distal fingers of the left hand. Integumentary: Skin is normal color, warm and dry. Cap refill less than 2 seconds. There is a 3.0 cm laceration to the webspace between the thumb and index finger. Bleeding is currently controlled with direct pressure. ED Course ED Course Orders Procedure Category Date Status Time Lidocaine Hcl 1% 20ml PHA 04/04/25 Complete Vial (Lidocaine Hc 11:30 Tetanus,Diphtheria PHA 04/04/25 Complete Tox [Adult] (Diphther 11:30 Current Medications Medications (Trade) Dose Ordered Sig/Brennan Route PRN Reason Start Time Stop Time Status Last Admin Dose Admin Lidocaine HCl (Lidocaine HCl 1% 20ml Vial) ONCE ONCE INJ 04/04/25 11:30 04/04/25 11:31 DC 04/04/25 11:34 Tetanus/ Diphtheria Toxoids Adsorbed (DiphthERIA-teTANUS TOXOID [ADULT]/ DECAVAC) 0.5 ml ONCE ONCE IM 04/04/25 11:30 04/04/25 11:31 DC 04/04/25 11:40 Vital Signs Date Time Temp Pulse Resp B/P (MAP) Pulse Ox O2 Delivery O2 Flow Rate FiO2 04/04/25 12:09 98.1 88 16 118/75 98 Room Air* 0 21 04/04/25 11:26 98.1 90 16 124/77 98 Room Air* 0 21 04/04/25 11:20 98.1 77 16 124/77 98 Room Air 0 Uneventful ED course. Wound was cleansed well no foreign body noted. Bleeding controlled. Laceration repair as noted below. Sutures x4. Patient tolerated procedure well she has been color, warmth, movement, and sensation distal. Capillary refills less than 2 seconds. Denies pain. DC instructions to patient and family member. All questions were answered. Medical Decision Making MDM MDM: Differential diagnosis: Laceration Rationale: Tests considered and ordered secondary to shared decision making include: Examination Previous outside records reviewed: Old ER visits. Risk of complication and/or morbidity or mortality of patient management: None Medications-Per medication reconciliation Need for hospitalization: Patient does not meet criteria for hospitalization. Need for emergency major/minor surgery: No There are no social concerns with this patient. Prescription drug management: Ibuprofen Prescriptions will include symptomatic care Patient's prior external medical records from other ER visits were reviewed by me as indicated. Prior testing and results from previous visits were reviewed. Prior tests were taken into account with medical decision making and resource utilization, independent historian/historians were used to obtain complete medical history. I independently interpreted the test that were performed, results were reviewed by me and considered findings on radiology if ordered. Medical management and examination interpretation discussions were had by me with other qualified healthcare professionals as indicated for the patient's care. Procedure Wound Location: upper extremity (Webspace between left thumb and index finger) Wound Length (cm): 3 Wound's Depth, Shape: linear Wound Explored: clean Irrigated w/ Saline (ccs): 250 Betadine Prep?: No Anesthesia: 1% Lidocaine Volume Anesthetic (ccs): 3 Wound Repaired With: sutures Suture Size/Type: 5:0 Number of Sutures: 4 Layer Closure?: No Sterile Dressing Applied?: Yes DX & DISP Disposition: Discharge Departure Impression: Primary Impression: Laceration of hand without foreign body Condition: Stable Scripts Ibuprofen (Ibuprofen) 600 Mg Tablet 1 TAB PO TID for pain for 10 Days, #30 TAB 0 Refills with food Prov: VIKTORIYA REGAN NP 04/04/25 Additional Instructions: Keep the dressing clean and dry for the next 24-48 hours. After 48 hours you may gently wash the area with mild soap and water once or twice daily, pat dry. Apply a thin layer of topical antibiotic ointment. Cover with clean, dry bandage of the area may get dirty or irritated. Avoid soaking the hand (no swimming, dishwashing, or prolonged submersion) until sutures are removed. Limit movement that stretches the webspace as this can cause sutures to share. Avoid heavy lifting, gripping, or I in fact activities with the injured hand. Keep the hand elevated when possible during the 1st 24-48 hours to reduce swelling and pain. Use [id number] acetaminophen or ibuprofen as needed for pain. Sutures should typically be removed in 7-10 days for the hand webspace lacerations. Follow up with your primary care provider, urgent care, or ED for suture removal and wound check. Return sooner if there are any concerns. Return to care immediately if: Increased pain, redness, swelling, or warmth around the wound. If you have pus, foul odor, or drainage. Bleeding that does not stop with pressure. Numbness, tingling, loss of movement, or color change in the fingers. Fever. Sutures break or wound edges separate. Referrals: SELF,REFERRAL (PCP) Time of Disposition: 12:07 I have examined patient, & reviewed all documents, & agreed W/ the Diagnosis, and Plan VIKTORIYA REGAN NP Apr 04, 2025 12:07 ALEJANDRA GUZMÁN MD Apr 05, 2025 07:00
[2025-04-04 12:09] VITALS: BP 118/75; PULSE 88; RESP 16; TEMP 98.1; O2SAT 98
== END 2025-04-04 12:10 | disposition home or self-care (01) ==
LOC: EDH 11:18
DX: S61.412A Laceration without foreign body of left hand, initial encounter (principal); Z79.1 Long term (current) use of non-steroidal anti-inflammatories (NSAID); Z79.52 Long term (current) use of systemic steroids; Z79.899 Other long term (current) drug therapy; Z87.19 Personal history of other diseases of the digestive system; Z94.81 Bone marrow transplant status; W26.0XXA Contact with knife, initial encounter; Y93.89 Activity, other specified; Y92.89 Other specified places as the place of occurrence of the external cause; Y99.8 Other external cause status
CPT/HCPCS: 12002; 90471; 90714; 99283